=== PATIENT | male | born 1990 | race American Indian/Alaskan Native ===

== ENCOUNTER 2018-03-18 19:51 | Emergency (ER) | payer SELFPAY ==
[2018-03-18 20:22] VITALS: BP 127/55
[2018-03-18] MEDS ORDERED: NORCO 10/325 PO ONE (21:47)
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
[2018-03-18] MEDS ORDERED: LIDOCAINE VISCOUS 2% MM NR (22:00)
[2018-03-18] MEDS ORDERED: LIDOCAINE VISCOUS 2% PO ONE (22:14)
== END 2018-03-18 22:16 | disposition home or self-care (01) ==
LOC: ED 19:51
DX: K02.9 Dental caries, unspecified (principal); E16.2 Hypoglycemia, unspecified
CPT/HCPCS: 99282